=== PATIENT | female | born 1960 | race Caucasian/White ===

== ENCOUNTER 2022-09-09 12:45 | Outpatient (RCR) | payer BC, SELFPAY | END 2022-11-12 13:20 | disposition home or self-care (01) | PROVIDERS: PCP Family Medicine; Visit Provider Family Medicine | DX: M25.571 Pain in right ankle and joints of right foot (principal); M25.371 Other instability, right ankle; M77.51 Other enthesopathy of right foot and ankle; Z51.89 Encounter for other specified aftercare | CPT/HCPCS: 97110; 97140; 97162; 97530 ==

== ENCOUNTER 2024-07-22 09:42 | Outpatient (CLI) | payer BC, SELFPAY ==
--- NOTE | 2024-07-22 10:51 | W.ANESCHARGE ---
Anesthesia Charges Start Date/Time Anesthesia Start Date: 07/22/24 Anesthesia Start Time: 10:24 Stop Date/Time Anesthesia Stop Date: 07/22/24 Anesthesia Stop Time: 10:45
--- NOTE | 2024-07-22 10:54 | W.ANESCHARGE ---
Anesthesia Charges Start Date/Time Anesthesia Start Date: 07/22/24 Anesthesia Start Time: 10:24 Stop Date/Time Anesthesia Stop Date: 07/22/24 Anesthesia Stop Time: 10:45
== END 2024-07-22 09:43 | disposition home or self-care (01) ==
LOC: OP CLINIC 09:46
PROVIDERS: PCP Family Medicine; Visit Provider Internal Medicine Gastroenterology
DX: Z12.11 Encounter for screening for malignant neoplasm of colon (principal)
CPT/HCPCS: 00811; 00812; 45378; J2704